=== PATIENT | male | born 1970 | race African-American/Black ===

== ENCOUNTER 2016-12-04 10:06 | Emergency (ER) | payer SELFPAY ==
[~2016-12-04] VITALS: Ht 175.3 cm; Wt 65.0 kg
[~2016-12-04 10:06] MED LIST: AMLO5 PO; BENT20TA PO; HYDR-3533 PO; OMEP40CA2 PO; SUCR1S PO; ZOFR4TAB PO
[2016-12-04 10:08] VITALS: BP 167/98; PULSE 74; RESP 12; TEMP 98.8; O2SAT 100
[2016-12-04 11:52] LABS: AUTOMATED NEUTROPHIL # 4.6 TH/MM3 (1.8-7.7); BASOPHIL % 0.2 % (0.0-2.0); EOSINOPHIL % 0.1 % (0.0-4.0); HEMO FLAGS DIFF FINAL; LYMPH % 10.6 % (9.0-44.0); LYMPHOCYTE # 0.6 TH/MM3 (1.0-4.8); MEAN CELL VOLUME 83.1 FL (80.0-100.0); MEAN CORPUSCULAR HEMOGLOBIN 28.3 PG (27.0-34.0); MEAN CORPUSCULAR HGB CONC 34.1 % (32.0-36.0); MONO % 4.3 % (0.0-8.0); NEUT % 84.8 % (16.0-70.0); PLATELET COUNT 293 TH/MM3 (150-450); RED BLOOD COUNT 4.82 MIL/MM3 (4.50-5.90); RED CELL DISTRIBUTION WIDTH 14.1 % (11.6-17.2); WHITE BLOOD COUNT 5.4 TH/MM3 (4.0-11.0)
[2016-12-04 11:55] LABS: BACTERIA, URINE RARE /hpf; BLOOD, URINE MOD (NEG); GLUCOSE,URINE NEG (NEG); HYALINE CAST, URINE 2 /lpf (RARE); KETONE, URINE NEG (NEG); MUCUS URINE FEW /lpf (OCC); NITRITE,URINE NEG (NEG); URINE COLOR YELLOW (YELLW/STRAW)
[2016-12-04 12:01] LABS: COMMENT (UR) CULT NOT INDICATED; CULTURE IF INDICATED CULT NOT INDICATED
[2016-12-04 12:07] LABS: ANION GAP 6 MEQ/L (5-15); AST (GOT) 22 U/L (15-37); BLOOD UREA NITROGEN 14 MG/DL (7-18); CHLORIDE 105 MEQ/L (98-107); GLOMERULAR FILTRATION RATE 98 ML/MIN (>89); POTASSIUM 4.4 MEQ/L (3.5-5.1); SODIUM (NA) 140 MEQ/L (136-145)
[2016-12-04 12:10] LABS: ALKALINE PHOSPHATASE 70 U/L (45-117); ALT (GPT) 41 U/L (12-78); TOTAL BILIRUBIN ADULT 0.4 MG/DL (0.2-1.0)
[2016-12-05] MEDS ORDERED: ZANTTAB9 PO (09:12)
[2016-12-05] MEDS ORDERED: REGL5TAB PO (10:16)
[2016-12-05] MEDS ORDERED: AMLO5 PO (10:16)
== END 2016-12-04 14:13 | disposition left against medical advice (07) ==
LOC: NETRI 10:06
DX: R11.10 Vomiting, unspecified (principal)
CPT/HCPCS: 80053; 81001; 83690; 85025; 99281

== ENCOUNTER 2016-12-05 08:30 | Emergency (ER) | payer SELFPAY ==
[~2016-12-05] VITALS: Ht 177.8 cm; Wt 65.0 kg
[2016-12-05 08:32] VITALS: BP 174/113; PULSE 92; RESP 16; TEMP 98.2; O2SAT 97
[2016-12-05] MEDS ORDERED: ZANTTAB9 PO (09:12)
--- NOTE | 2016-12-05 09:13 | PD ---
HPI Chief Complaint: GI Complaint Time Seen by Provider: 09:05 Travel History International Travel<30 days: No Contact w/Intl Traveler<30days: No Traveled to known affect area: No History of Present Illness HPI 46-year-old male came to the emergency room with history of intractable vomiting since past 2 days. He is also complaining of generalized abdominal pain. Patient has had these symptoms multiple times in the past. He says he had upper endoscopy but nothing showed up at that time. He had his gallbladder taken out many years ago but that has not helped the situation. He was in the emergency room yesterday for these symptoms but there was a long wait time. So he left without being seen. He says usually he gets some medications and IV fluid bolus after which he feels better. On looking at his past medical history in this institution it seems like he was here in the emergency room with the same symptoms 2 months ago when a CAT scan of the abdomen was done. It was within normal limits. Patient is hypertensive. He says his blood pressure goes up whenever he is in distress and pain like this. Patient is currently not on any medications. He does not have insurance and does not have a primary care doctor. [facility] Past Medical History Narrative Medical List of his past medical history as reviewed from the nursing note. Arthritis: No Autoimmune Disease: No Blood Disorders: No Cancer: No Cardiac Catheterization: No Cardiovascular Problems: Yes High Cholesterol: No Congestive Heart Failure: No Diabetes: No Diminished Hearing: No Endocrine: No Gastrointestinal Disorders: Yes (gastritis, GERD) GERD: Yes Genitourinary: No Headaches: No Hypertension: Yes Immune Disorder: No Implanted Vascular Access Dvce: No Musculoskeletal: No Neurologic: No Psychiatric: No Reproductive: No Respiratory: No Tetanus Vaccination: < 5 Years PNEUMOCCOCAL Vaccine (Year): 3 Past Surgical History Abdominal Surgery: Yes Cardiac Surgery: No Cholecystectomy: Yes Ear Surgery: No Endocrine Surgery: No Eye Surgery: No Genitourinary Surgery: Yes Gynecologic Surgery: No Neurologic Surgery: No Oral Surgery: No Thoracic Surgery: No Social History Alcohol Use: No Tobacco Use: Yes (<1/2 ppd) Substance Use: Yes (marijuana occ) Allergies-Medications (Allergen,Severity, Reaction): Coded Allergies: No Known Allergies (Verified , 12/06/16) Comments No known drug allergies. Reported Meds & Prescriptions Reported Meds & Active Scripts Active Bentyl (Dicyclomine HCl) 20 Mg Tab 20 Mg PO QID PRN Reglan (Metoclopramide HCl) 5 Mg Tab 5 Mg PO TIDAC Norvasc (Amlodipine Besylate) 5 Mg Tab 5 Mg PO DAILY Reported Zantac 75 (Ranitidine HCl) 75 Mg Tab 75 Mg PO DAILY Take 30 to 60 minutes before eating food or drinking beverages that cause heartburn. Narrative Medication List of his home medications reviewed from the nursing note. Review of Systems Except as stated in HPI: all other systems reviewed are Neg Physical Exam Narrative GENERAL: Awake, alert, moderate distress, anxious SKIN: Warm and dry. HEAD: Atraumatic. Normocephalic. EYES: Pupils equal and round. No scleral icterus. No injection or drainage. ENT: No nasal bleeding or discharge. Dry mucous membrane with coated tongue NECK: Trachea midline. No JVD. CARDIOVASCULAR: Regular rate and rhythm. No murmur appreciated. RESPIRATORY: No accessory muscle use. Clear to auscultation. Breath sounds equal bilaterally. GASTROINTESTINAL: Abdomen soft, non-tender, nondistended. Hepatic and splenic margins not palpable. MUSCULOSKELETAL: No obvious deformities. No clubbing. No cyanosis. No edema. NEUROLOGICAL: Awake and alert. No obvious cranial nerve deficits. Motor grossly within normal limits. Normal speech. PSYCHIATRIC: Appropriate mood and affect; insight and judgment normal. Data Data Last Documented VS Vital Signs Date Time Temp Pulse Resp B/P Pulse Ox O2 Delivery O2 Flow Rate FiO2 12/05/16 09:39 99 12/05/16 08:32 98.2 92 16 174/113 Room Air Orders Complete Blood Count With Diff (12/05/16 09:21) Comprehensive Metabolic Panel (12/05/16 09:21) Lipase (12/05/16 09:21) Iv Access Insert/Monitor (12/05/16 09:21) Ecg Monitoring (12/05/16 09:21) Oximetry (12/05/16 09:21) Pantoprazole Inj (Protonix Inj) (12/05/16 09:30) Sodium Chlor 0.9% 1000 Ml Inj (Ns 1000 M (12/05/16 09:21) Sodium Chlor 0.9% 1000 Ml Inj (Ns 1000 M (12/05/16 09:21) Sodium Chloride 0.9% Flush (Ns Flush) (12/05/16 09:30) Metoclopramide Inj (Reglan Inj) (12/05/16 09:30) Morphine Inj (Morphine Inj) (12/05/16 09:30) Metoclopramide Inj (Reglan Inj) (12/05/16 10:15) Sodium Chlor 0.9% 1000 Ml Inj (Ns 1000 M (12/05/16 10:30) Labs Laboratory Tests Test 12/05/16 09:30 White Blood Count 5.9 TH/MM3 Red Blood Count 5.19 MIL/MM3 Hemoglobin 14.8 GM/DL Hematocrit 43.0 % Mean Corpuscular Volume 82.7 FL Mean Corpuscular Hemoglobin 28.4 PG Mean Corpuscular Hemoglobin 34.4 % Concent Red Cell Distribution Width 13.7 % Platelet Count 282 TH/MM3 Mean Platelet Volume 7.8 FL Neutrophils (%) (Auto) 68.8 % Lymphocytes (%) (Auto) 16.1 % Monocytes (%) (Auto) 14.7 % Eosinophils (%) (Auto) 0.0 % Basophils (%) (Auto) 0.4 % Neutrophils # (Auto) 4.1 TH/MM3 Lymphocytes # (Auto) 0.9 TH/MM3 Monocytes # (Auto) 0.9 TH/MM3 Eosinophils # (Auto) 0.0 TH/MM3 Basophils # (Auto) 0.0 TH/MM3 CBC Comment DIFF FINAL Differential Comment Sodium Level 140 MEQ/L Potassium Level 4.1 MEQ/L Chloride Level 102 MEQ/L Carbon Dioxide Level 27.6 MEQ/L Anion Gap 10 MEQ/L Blood Urea Nitrogen 19 MG/DL Creatinine 1.06 MG/DL Estimat Glomerular Filtration 92 ML/MIN Rate Random Glucose 99 MG/DL Calcium Level 9.3 MG/DL Total Bilirubin 0.5 MG/DL Aspartate Amino Transf 22 U/L (AST/SGOT) Alanine Aminotransferase 38 U/L (ALT/SGPT) Alkaline Phosphatase 73 U/L Total Protein 8.6 GM/DL Albumin 4.4 GM/DL Lipase 139 U/L MDM Medical Decision Making Medical Screen Exam Complete: Yes Emergency Medical Condition: Yes Medical Record Reviewed: Yes Differential Diagnosis Acute pancreatitis, small bowel obstruction, cyclic vomiting syndrome, acute on chronic abdominal pain Narrative Course 10:11 AM CBC and CMP are back and within normal limit. I've ordered 2 L of IV fluid bolus, medicated him for pain and vomiting. In my opinion patient may have cyclic vomiting syndrome given the way he presents on an ongoing basis. At the least it's acute on chronic abdominal pain. I will discharge him home once the fluid is done. Procedures EKG Prior to Arrival: No Diagnosis Primary Impression: Abdominal pain Qualified Code: R10.9 - Abdominal pain, unspecified location Additional Impressions: acute on chronic abdominal pain Intractable vomiting with nausea Qualified Code: G43.A1 - Intractable cyclical vomiting with nausea Dehydration Essential hypertension Non-compliant patient Referrals: Primary Care Physician 2 days Additional Instructions: Please follow-up with your primary care in couple days. Return to the ER if the condition worsens or any other new concerns. Med/Other Pt SpecificInfo: Prescription(s) given Scripts Metoclopramide (Reglan)5 Mg Tab5 Mg PO TIDAC #15 TAB Ref 0 Prov:Ajith Jones MD 12/05/16 Amlodipine (Norvasc)5 Mg Tab5 Mg PO DAILY #30 TAB Ref 0 Prov:Ajith Jones MD 12/05/16 Disposition: 01 DISCHARGE HOME Condition: Stable Ajith Jones MD Dec 05, 2016 09:12
[2016-12-05] MEDS ORDERED: SODIUM CHLOR 0.9% 1000 ML INJ 1,000 ML IV SCH ×2 (09:21)
[2016-12-05] MEDS ORDERED: MORPHINE SULFATE 4 MG/ML INJ IV PUSH ONE (09:30)
[2016-12-05] MEDS ORDERED: PANTOPRAZOLE SODIUM 40 MG VIAL IVP ONE (09:30)
[2016-12-05] MEDS ORDERED: METOCLOPRAMIDE HCL 10 MG/2 ML VIAL IV PUSH ONE ×2 (09:30→10:15)
[2016-12-05] MEDS ORDERED: SODIUM CHLORIDE 0.9% FLUSH 5 ML FLUSH IVF PRN (09:30)
[2016-12-05 09:39] VITALS: O2SAT 99
[2016-12-05 09:40] LABS: AUTOMATED NEUTROPHIL # 4.1 TH/MM3 (1.8-7.7); BASOPHIL % 0.4 % (0.0-2.0); HEMO FLAGS DIFF FINAL; LYMPH % 16.1 % (9.0-44.0); LYMPHOCYTE # 0.9 TH/MM3 (1.0-4.8); MEAN CELL VOLUME 82.7 FL (80.0-100.0); MEAN CORPUSCULAR HEMOGLOBIN 28.4 PG (27.0-34.0); MEAN CORPUSCULAR HGB CONC 34.4 % (32.0-36.0); MONO % 14.7 % (0.0-8.0); NEUT % 68.8 % (16.0-70.0); PLATELET COUNT 282 TH/MM3 (150-450); RED BLOOD COUNT 5.19 MIL/MM3 (4.50-5.90); RED CELL DISTRIBUTION WIDTH 13.7 % (11.6-17.2); WHITE BLOOD COUNT 5.9 TH/MM3 (4.0-11.0)
[2016-12-05 09:59] LABS: ANION GAP 10 MEQ/L (5-15); AST (GOT) 22 U/L (15-37); BICARBONATE 27.6 MEQ/L (21.0-32.0); BLOOD UREA NITROGEN 19 MG/DL (7-18); CHLORIDE 102 MEQ/L (98-107); GLOMERULAR FILTRATION RATE 92 ML/MIN (>89); POTASSIUM 4.1 MEQ/L (3.5-5.1); SODIUM (NA) 140 MEQ/L (136-145)
[2016-12-05 10:03] LABS: ALKALINE PHOSPHATASE 73 U/L (45-117); ALT (GPT) 38 U/L (12-78); TOTAL BILIRUBIN ADULT 0.5 MG/DL (0.2-1.0)
[2016-12-05] MEDS ORDERED: REGL5TAB PO (10:16)
[2016-12-05] MEDS ORDERED: AMLO5 PO (10:16)
[2016-12-05] MEDS ORDERED: SODIUM CHLOR 0.9% 1000 ML INJ 1,000 ML IV ONE (10:30)
[2016-12-06] MEDS ORDERED: BENT20TA PO (10:21)
== END 2016-12-05 11:44 | disposition home or self-care (01) ==
LOC: NEPC 08:30
DX: R10.84 Generalized abdominal pain (principal); G89.29 Other chronic pain; G43.A1 Cyclical vomiting, in migraine, intractable; I10 Essential (primary) hypertension; E86.0 Dehydration; F17.200 Nicotine dependence, unspecified, uncomplicated; Z91.14 Patient's other noncompliance with medication regimen
CPT/HCPCS: 80053; 83690; 85025; 96361; 96374; 96375; 96376; 99284; C9113; J2270; J2765; J7030

== ENCOUNTER 2016-12-06 07:43 | Emergency (ER) | payer SELFPAY ==
[~2016-12-06] VITALS: Ht 177.8 cm; Wt 60.0 kg
[~2016-12-06 07:43] MED LIST changes: +REGL5TAB PO; +ZANTTAB9 PO
[2016-12-06 07:45] VITALS: BP 141/81; PULSE 88; RESP 15; TEMP 98.1; O2SAT 97
[2016-12-06] MEDS ORDERED: SODIUM CHLOR 0.9% 1000 ML INJ 1,000 ML IV SCH (08:15)
[2016-12-06] MEDS ORDERED: SODIUM CHLORIDE 0.9% FLUSH 5 ML FLUSH IVF PRN (08:15)
[2016-12-06] MEDS ORDERED: METOCLOPRAMIDE HCL 10 MG/2 ML VIAL IV PUSH ONE (08:15)
[2016-12-06 09:26] VITALS: RESP 18; O2SAT 99
[2016-12-06] MEDS ORDERED: KETOROLAC TROMETHAMINE 30 MG/ML (IVP) VIAL IV PUSH ONE (09:30)
[2016-12-06] MEDS ORDERED: IOHEXOL 350 MG/ML 10 ML VIAL (for RAD DIAG) IV ONE (09:46)
--- NOTE | 2016-12-06 10:04 | RADRPT ---
EXAM DATE/TIME: 12/06/2016 09:38 [facility] COMPARISON: CT ABDOMEN & PELVIS W CONTRAST, September 29, 2016, 14:47. INDICATIONS : Abdominal pain with nausea and vomiting. IV CONTRAST: 97 cc Omnipaque 350 (iohexol) IV ORAL CONTRAST: No oral contrast ingested. RADIATION DOSE: 9.96 CTDIvol (mGy) MEDICAL HISTORY : Gastroesophageal reflux disease. Cardiovascular disease Hypertension.Gastritis. SURGICAL HISTORY : Cholecystectomy. ENCOUNTER: Initial ACUITY: 2 days PAIN SCALE: 3/10 LOCATION: Bilateral upper quadrant TECHNIQUE: Volumetric scanning of the abdomen and pelvis was performed. Using automated exposure control and ad justment of the mA and/or kV according to patient size, radiation dose was kept as low as reasonably achievable to obtain optimal diagnostic quality images. FINDINGS: LOWER LUNGS: The visualized lower lungs are clear. LIVER: Homogeneous density without lesion. There is no dilation of the biliary tree. Status post cholecyste ctomy. SPLEEN: Normal size without lesion. PANCREAS: Within normal limits. KIDNEYS: Normal in size and shape. There is no solid mass, stone or hydronephrosis. A simple left renal cyst is again noted. ADRENAL GLANDS: Within normal limits. VASCULAR: There is no aortic aneurysm. BOWEL/MESENTERY: No oral contrast was given. There are multiple loops of nondilated air-containing small bowel in the abdomen and pelvis. The lack of oral contrast limits the sensitivity. The patient has little mesenter ic fat to separate the bowel loops. The stomach, small bowel, and colon demonstrate no acute abnormal ity. There is no free intraperitoneal air or fluid. ABDOMINAL WALL: Within normal limits. RETROPERITONEUM: There is no lymphadenopathy. BLADDER: No wall thickening or mass. REPRODUCTIVE: Within normal limits. INGUINAL: There is no lymphadenopathy or hernia. MUSCULOSKELETAL: Within normal limits for patient age. CONCLUSION: 1. Nonspecific, nonobstructive bowel gas pattern which may represent ileus or gastroenteritis. Study was performed without oral contrast limiting the sensitivity. 2. Status post cholecystectomy. James Sotelo MD on December 06, 2016 at 10:00 Board Certified Radiologist. This report was verified electronically.
--- NOTE | 2016-12-06 10:17 | PD ---
HPI Chief Complaint: GI Complaint Time Seen by Provider: 08:15 Travel History International Travel<30 days: No Contact w/Intl Traveler<30days: No Traveled to known affect area: No History of Present Illness HPI Patient's 46-year-old male presents emergency department for second evaluation of abdominal pain nausea vomiting and diarrhea. Patient was evaluated in this emergency department last night and per Dr. Lin's notes strong consideration for cyclic vomiting syndrome. Patient states he was not able to fill his prescriptions yet. He was discharged with Reglan. Patient states his abdominal pain is persisted as well as mild nausea and vomiting. Denies any fever denies any blood in the emesis blood in the stool. PFSH Past Medical History Arthritis: No Autoimmune Disease: No Blood Disorders: No Cancer: No Cardiac Catheterization: No Cardiovascular Problems: Yes High Cholesterol: No Congestive Heart Failure: No Diabetes: No Diminished Hearing: No Endocrine: No Gastrointestinal Disorders: Yes (gastritis, GERD) GERD: Yes Genitourinary: No Headaches: No Hypertension: Yes Immune Disorder: No Implanted Vascular Access Dvce: No Musculoskeletal: No Neurologic: No Psychiatric: No Reproductive: No Respiratory: No PNEUMOCCOCAL Vaccine (Year): 3 Past Surgical History Abdominal Surgery: Yes Cardiac Surgery: No Cholecystectomy: Yes Ear Surgery: No Endocrine Surgery: No Eye Surgery: No Genitourinary Surgery: Yes Gynecologic Surgery: No Neurologic Surgery: No Oral Surgery: No Thoracic Surgery: No Social History Alcohol Use: No Tobacco Use: Yes (<1/2 ppd) Substance Use: Yes (marijuana occ) Allergies-Medications (Allergen,Severity, Reaction): Coded Allergies: No Known Allergies (Verified , 12/06/16) Reported Meds & Prescriptions Reported Meds & Active Scripts Active Bentyl (Dicyclomine HCl) 20 Mg Tab 20 Mg PO QID PRN Reglan (Metoclopramide HCl) 5 Mg Tab 5 Mg PO TIDAC Norvasc (Amlodipine Besylate) 5 Mg Tab 5 Mg PO DAILY Reported Zantac 75 (Ranitidine HCl) 75 Mg Tab 75 Mg PO DAILY Take 30 to 60 minutes before eating food or drinking beverages that cause heartburn. Review of Systems Except as stated in HPI: all other systems reviewed are Neg Physical Exam Narrative GENERAL: Well-developed well-nourished no apparent distress SKIN: Warm and dry. HEAD: Atraumatic. Normocephalic. EYES: Pupils equal and round. No scleral icterus. No injection or drainage. ENT: No nasal bleeding or discharge. Mucous membranes pink and moist. NECK: Trachea midline. No JVD. CARDIOVASCULAR: Regular rate and rhythm. No murmur appreciated. RESPIRATORY: No accessory muscle use. Clear to auscultation. Breath sounds equal bilaterally. GASTROINTESTINAL: Abdomen soft, non-tender, nondistended. Hepatic and splenic margins not palpable. Normal active bowel sounds. MUSCULOSKELETAL: No obvious deformities. No clubbing. No cyanosis. No edema. NEUROLOGICAL: Awake and alert. No obvious cranial nerve deficits. Motor grossly within normal limits. Normal speech. PSYCHIATRIC: Appropriate mood and affect; insight and judgment normal. Data Data Last Documented VS Vital Signs Date Time Temp Pulse Resp B/P Pulse Ox O2 Delivery O2 Flow Rate FiO2 12/06/16 09:26 18 99 12/06/16 07:45 98.1 88 141/[address] Abd/Pel W Iv Contrast(Rout) (12/06/16 08:15) Iv Access Insert/Monitor (12/06/16 08:15) Ecg Monitoring (12/06/16 08:15) Oximetry (12/06/16 08:15) Sodium Chlor 0.9% 1000 Ml Inj (Ns 1000 M (12/06/16 08:15) Sodium Chloride 0.9% Flush (Ns Flush) (12/06/16 08:15) Metoclopramide Inj (Reglan Inj) (12/06/16 08:15) Ketorolac Inj (Toradol Inj) (12/06/16 09:30) Iohexol 350 Inj (Omnipaque 350 Inj) (12/06/16 09:46) Dicyclomine (Bentyl) (12/06/16 10:30) MDM Medical Decision Making Medical Screen Exam Complete: Yes Emergency Medical Condition: Yes Differential Diagnosis Gastritis, gastric enteritis, pancreatitis, cyclic vomiting syndrome, obstipation highly unlikely, infectious diarrhea. Narrative Course Patient was roomed emerged permit, appears quite well and in no apparent distress. He was given pain medicine and started feeling better. A CT exam was performed which showed evidence of enteritis. There was comment that possibly patient did have ileus however I reviewed the CAT scan I do not see any air-fluid levels and this is highly consistent with his presentation. Patient's labs reviewed from yesterday and showed normal CBC and a normal CMP. Lipase was negative. Patient is not obstipated in the emergency department has not had any nausea vomiting while here. He is able tolerate by mouth in the emergency department. Discussed with the patient need to fill his prescriptions and discussed need follow-up with a primary care physician. Discussed return to ED criteria. For discharge at this time. Diagnosis Primary Impression: NAUSEA WITH VOMITING, UNSPECIFIED Scripts Dicyclomine (Bentyl)20 Mg Tab20 Mg PO QID PRN (ABDOMINAL CRAMPING) #20 TAB Ref 0 Prov:Tam Lala MD 12/06/16 Disposition: 01 DISCHARGE HOME Condition: Stable Tam Lala MD Dec 06, 2016 10:17
[2016-12-06] MEDS ORDERED: BENT20TA PO (10:21)
[2016-12-06] MEDS ORDERED: DICYCLOMINE HCL 10 MG CAP PO ONE (10:30)
== END 2016-12-06 11:11 | disposition home or self-care (01) ==
LOC: NEPE 07:43
DX: R11.2 Nausea with vomiting, unspecified (principal); I10 Essential (primary) hypertension; F17.210 Nicotine dependence, cigarettes, uncomplicated; F12.90 Cannabis use, unspecified, uncomplicated; Z79.899 Other long term (current) drug therapy
CPT/HCPCS: 74177; 96361; 96374; 96375; 99283; J1885; J2765; J7030; Q9967

== ENCOUNTER 2017-09-13 07:10 | Emergency (ER) | payer SELFPAY ==
[~2017-09-13] VITALS: Ht 177.8 cm; Wt 68.0 kg
[~2017-09-13 07:10] MED LIST changes: -HYDR-3533 PO; -OMEP40CA2 PO; -SUCR1S PO; -ZOFR4TAB PO
[2017-09-13 07:14] VITALS: BP 164/107; PULSE 78; RESP 14; TEMP 98.8; O2SAT 100
[2017-09-13 07:32] VITALS: BP 164/107; PULSE 61; RESP 16; O2SAT 98
[2017-09-13] MEDS ORDERED: SODIUM CHLOR 0.9% 1000 ML INJ 1,000 ML IV SCH (07:39)
[2017-09-13 07:45] VITALS: RESP 16; O2SAT 98
[2017-09-13] MEDS ORDERED: PANTOPRAZOLE SODIUM 40 MG VIAL IVP ONE (07:45)
[2017-09-13] MEDS ORDERED: SODIUM CHLORIDE 0.9% FLUSH 10 ML FLUSH IV FLUSH PRN (07:45)
--- NOTE | 2017-09-13 07:47 | PD ---
HPI Chief Complaint: Abdominal Pain Time Seen by Provider: 07:36 Travel History International Travel<30 days: No Contact w/Intl Traveler<30days: No Traveled to known affect area: No History of Present Illness HPI 47 years old male complaining of abdominal pain with nausea vomiting. Patient states that the symptoms started several days ago. Patient has history of recurrent abdominal pain with nausea vomiting. Patient has been seen in emergency room multiple times in the past with a workup. Patient was diagnosis with cyclical vomiting syndrome. Patient states that the abdominal pain is burning pain sharp pain diffuse over the abdomen however worse around epigastric area. Patient denies any pain radiation. Patient denies any blood or mucus in the stool. Patient states the pain is worse with eating. On a scale of 1-10 the pain is a 10. Patient states that he has not follow-up with any lead generation marketing manager for his condition. PFSH Past Medical History Arthritis: No Autoimmune Disease: No Blood Disorders: No Cancer: No Cardiac Catheterization: No Cardiovascular Problems: Yes High Cholesterol: No Congestive Heart Failure: No Diabetes: No Diminished Hearing: No Endocrine: No Gastrointestinal Disorders: Yes GERD: Yes Genitourinary: No Headaches: No Hypertension: Yes Immune Disorder: No Implanted Vascular Access Dvce: No Musculoskeletal: No Neurologic: No Psychiatric: No Reproductive: No Respiratory: No Tetanus Vaccination: Unknown Influenza Vaccination: Yes PNEUMOCCOCAL Vaccine (Year): 3 Past Surgical History Abdominal Surgery: Yes Cardiac Surgery: No Cholecystectomy: Yes Ear Surgery: No Endocrine Surgery: No Eye Surgery: No Genitourinary Surgery: Yes Gynecologic Surgery: No Neurologic Surgery: No Oral Surgery: No Thoracic Surgery: No Social History Alcohol Use: No Tobacco Use: Yes (<1/2 ppd) Substance Use: Yes (marijuana occ) Allergies-Medications (Allergen,Severity, Reaction): Coded Allergies: No Known Allergies (Verified Adverse Reaction, Unknown, 09/13/17) Reported Meds & Prescriptions Reported Meds & Active Scripts Active No Active Prescriptions or Reported Medications Review of Systems General / Constitutional: No: Fever Eyes: No: Visual changes HENT: No: Headaches Cardiovascular: No: Chest Pain or Discomfort Respiratory: No: Shortness of Breath Gastrointestinal: Positive: Nausea, Vomiting, Abdominal Pain Genitourinary: No: Dysuria Musculoskeletal: No: Pain Skin: No Rash Neurologic: No: Weakness Psychiatric: No: Depression Endocrine: No: Polydipsia Hematologic/Lymphatic: No: Easy Bruising Physical Exam Narrative GENERAL: Well-nourished, well-developed patient. SKIN: Focused skin assessment warm/dry. HEAD: Normocephalic. EYES: No scleral icterus. No injection or drainage. NECK: Supple, trachea midline. No JVD or lymphadenopathy. CARDIOVASCULAR: Regular rate and rhythm without murmurs, gallops, or rubs. RESPIRATORY: Breath sounds equal bilaterally. No accessory muscle use. GASTROINTESTINAL: Abdomen soft, nondistended. Patient has moderate tenderness on palpation epigastric area. No rebound tenderness. No mass. MUSCULOSKELETAL: No cyanosis, or edema. BACK: Nontender without obvious deformity. No CVA tenderness. Neurologic exam normal. Data Data Last Documented VS Vital Signs Date Time Temp Pulse Resp B/P (MAP) Pulse Ox O2 Delivery O2 Flow Rate FiO2 09/13/17 07:45 16 98 Room Air 09/13/17 07:32 61 09/13/17 07:14 98.8 Orders Orders Complete Blood Count With Diff (09/13/17 07:39) Comprehensive Metabolic Panel (09/13/17 07:39) Lipase (09/13/17 07:39) Urinalysis - C+S If Indicated (09/13/17 07:39) Iv Access Insert/Monitor (09/13/17 07:39) Ecg Monitoring (09/13/17 07:39) Oximetry (09/13/17 07:39) Pantoprazole Inj (Protonix Inj) (09/13/17 07:45) Sodium Chlor 0.9% 1000 Ml Inj (Ns 1000 M (09/13/17 07:39) Sodium Chloride 0.9% Flush (Ns Flush) (09/13/17 07:45) Metoclopramide Inj (Reglan Inj) (09/13/17 08:00) Diphenhydramine Inj (Benadryl Inj) (09/13/17 08:00) Labs Laboratory Tests Test 09/13/17 07:15 09/13/17 10:00 White Blood Count 9.2 TH/MM3 Red Blood Count 4.96 MIL/MM3 Hemoglobin 14.1 GM/DL Hematocrit 42.1 % Mean Corpuscular Volume 84.8 FL Mean Corpuscular Hemoglobin 28.4 PG Mean Corpuscular Hemoglobin Concent 33.5 % Red Cell Distribution Width 14.8 % Platelet Count 327 TH/MM3 Mean Platelet Volume 7.6 FL Neutrophils (%) (Auto) 79.3 % Lymphocytes (%) (Auto) 13.9 % Monocytes (%) (Auto) 6.5 % Eosinophils (%) (Auto) 0.0 % Basophils (%) (Auto) 0.3 % Neutrophils # (Auto) 7.3 TH/MM3 Lymphocytes # (Auto) 1.3 TH/MM3 Monocytes # (Auto) 0.6 TH/MM3 Eosinophils # (Auto) 0.0 TH/MM3 Basophils # (Auto) 0.0 TH/MM3 CBC Comment DIFF FINAL Differential Comment Blood Urea Nitrogen 12 MG/DL Creatinine 1.02 MG/DL Random Glucose 114 MG/DL Total Protein 8.1 GM/DL Albumin 4.3 GM/DL Calcium Level 9.1 MG/DL Alkaline Phosphatase 74 U/L Aspartate Amino Transf (AST/SGOT) 14 U/L Alanine Aminotransferase (ALT/SGPT) 23 U/L Total Bilirubin 0.6 MG/DL Sodium Level 144 MEQ/L Potassium Level 3.7 MEQ/L Chloride Level 110 MEQ/L Carbon Dioxide Level 27.1 MEQ/L Anion Gap 7 MEQ/L Estimat Glomerular Filtration Rate 95 ML/MIN Lipase 106 U/L Urine Color YELLOW Urine Turbidity CLEAR Urine pH 6.0 Urine Specific [place] 1.012 Urine Protein 300 mg/dL Urine Glucose (UA) NEG mg/dL Urine Ketones NEG mg/dL Urine Occult Blood SMALL Urine Nitrite NEG Urine Bilirubin NEG Urine Urobilinogen LESS THAN 2.0 MG/DL Urine Leukocyte Esterase NEG Urine RBC 1 /hpf Urine WBC 2 /hpf Urine Mucus FEW /lpf Microscopic Urinalysis Comment CULT NOT INDICATED MDM Medical Decision Making Medical Screen Exam Complete: Yes Emergency Medical Condition: Yes Interpretation(s) 10:30 AM. CBC within normal limit. CMP within normal limit. UA is negative. Differential Diagnosis Differential diagnosis including recurrent abdominal pain with nausea vomiting, gastroparesis, electrolyte imbalance, dehydration. Narrative Course 47 years old male with recurrent abdominal pain nausea vomiting. Normal saline solution 1 25 cc an hour. Zofran 4 mg IV. Reglan 10 mg IV. Benadryl 25 mg IV. Diagnosis Primary Impression: Abdominal pain Qualified Codes: R10.9 - Unspecified abdominal pain Additional Impression: Cyclical vomiting Qualified Codes: G43.A0 - Cyclical vomiting, not intractable Patient Instructions: General Instructions Additional Instructions: Take medications as directed. Follow-up with personal physician. Return if worse. Med/Other Pt SpecificInfo: Prescription(s) given Scripts Pantoprazole (Protonix) 40 Mg Tab 40 MG PO DAILY for Reflux, #30 TAB 0 Refills Prov: Leo Bañuelos MD 09/13/17 Metoclopramide (Reglan) 10 Mg Tab 10 MG PO TIDAC for Nausea/Vomiting, #30 TAB 0 Refills Prov: Leo Bañuelos MD 09/13/17 Disposition: 01 DISCHARGE HOME Condition: Stable Leo Bañuelos MD Sep 13, 2017 07:47
[2017-09-13] MEDS ORDERED: diphenhydrAMINE HCL 50 MG/ML VIAL IV PUSH ONE (08:00)
[2017-09-13] MEDS ORDERED: METOCLOPRAMIDE HCL 10 MG/2 ML VIAL IV PUSH ONE (08:00)
[2017-09-13 08:14] LABS: AUTOMATED NEUTROPHIL # 7.3 TH/MM3 (1.8-7.7); BASOPHIL % 0.3 % (0.0-2.0); HEMATOCRIT 42.1 % (39.0-51.0); HEMO FLAGS DIFF FINAL; LYMPH % 13.9 % (9.0-44.0); LYMPHOCYTE # 1.3 TH/MM3 (1.0-4.8); MEAN CELL VOLUME 84.8 FL (80.0-100.0); MEAN CORPUSCULAR HEMOGLOBIN 28.4 PG (27.0-34.0); MEAN CORPUSCULAR HGB CONC 33.5 % (32.0-36.0); MONO % 6.5 % (0.0-8.0); NEUT % 79.3 % (16.0-70.0); PLATELET COUNT 327 TH/MM3 (150-450); RED BLOOD COUNT 4.96 MIL/MM3 (4.50-5.90); RED CELL DISTRIBUTION WIDTH 14.8 % (11.6-17.2); WHITE BLOOD COUNT 9.2 TH/MM3 (4.0-11.0)
[2017-09-13 08:28] LABS: ALT (GPT) 23 U/L (12-78); ANION GAP 7 MEQ/L (5-15); AST (GOT) 14 U/L (15-37); BICARBONATE 27.1 MEQ/L (21.0-32.0); BLOOD UREA NITROGEN 12 MG/DL (7-18); CHLORIDE 110 MEQ/L (98-107); GLOMERULAR FILTRATION RATE 95 ML/MIN (>89); POTASSIUM 3.7 MEQ/L (3.5-5.1); SODIUM (NA) 144 MEQ/L (136-145)
[2017-09-13 08:30] LABS: ALKALINE PHOSPHATASE 74 U/L (45-117); TOTAL BILIRUBIN ADULT 0.6 MG/DL (0.2-1.0)
[2017-09-13 10:20] LABS: BLOOD, URINE SMALL (NEG); GLUCOSE,URINE NEG (NEG); KETONE, URINE NEG (NEG); MUCUS URINE FEW /lpf (OCC); NITRITE,URINE NEG (NEG); URINE COLOR YELLOW (YELLW/STRAW)
[2017-09-13 10:21] LABS: COMMENT (UR) CULT NOT INDICATED; CULTURE IF INDICATED CULT NOT INDICATED
[2017-09-13] MEDS ORDERED: PROT40TA PO (10:50)
[2017-09-13] MEDS ORDERED: REGL10TA5 PO (10:50)
== END 2017-09-13 10:53 | disposition home or self-care (01) ==
LOC: NEPE 07:10
DX: R10.9 Unspecified abdominal pain (principal); G43.A0 Cyclical vomiting, in migraine, not intractable; K21.9 Gastro-esophageal reflux disease without esophagitis; I10 Essential (primary) hypertension; F17.200 Nicotine dependence, unspecified, uncomplicated
CPT/HCPCS: 80053; 81001; 83690; 85025; 96374; 96375; 99285; C9113; J1200; J2765; J7030

== ENCOUNTER 2017-09-14 07:56 | Emergency (ER) | payer SELFPAY ==
[~2017-09-14] VITALS: Ht 180.3 cm; Wt 68.0 kg
[~2017-09-14 07:56] MED LIST changes: -AMLO5 PO; -BENT20TA PO; +PROT40TA PO; +REGL10TA5 PO; -REGL5TAB PO; -ZANTTAB9 PO
[2017-09-14 07:59] VITALS: BP 169/94; PULSE 86; RESP 14; TEMP 99; O2SAT 97
--- NOTE | 2017-09-14 08:44 | PD ---
HPI Chief Complaint: GI Complaint Time Seen by Provider: 08:31 Travel History International Travel<30 days: No Contact w/Intl Traveler<30days: No Traveled to known affect area: No History of Present Illness HPI 47-year-old male presents with worsening abdominal pain and nonbloody emesis. He states that he was unable to get his prescription filled. He states that the pain is sharp. Severity is severe. Quality is nonbloody. Severity is multiple episodes. Location is center of his abdomen. He denies any specific modifying factors or migration of the pain. Duration is persistent since recent ER visit [facility] Past Medical History Arthritis: No Autoimmune Disease: No Blood Disorders: No Cancer: No Cardiac Catheterization: No Cardiovascular Problems: Yes High Cholesterol: No Congestive Heart Failure: No Diabetes: No Diminished Hearing: No Endocrine: No Gastrointestinal Disorders: Yes GERD: Yes Genitourinary: No Headaches: No Hypertension: Yes Immune Disorder: No Implanted Vascular Access Dvce: No Musculoskeletal: No Neurologic: No Psychiatric: No Reproductive: No Respiratory: No Tetanus Vaccination: > 5 Years Influenza Vaccination: No PNEUMOCCOCAL Vaccine (Year): 3 Past Surgical History Abdominal Surgery: Yes Cardiac Surgery: No Cholecystectomy: Yes Ear Surgery: No Endocrine Surgery: No Eye Surgery: No Genitourinary Surgery: Yes Gynecologic Surgery: No Neurologic Surgery: No Oral Surgery: No Thoracic Surgery: No Social History Alcohol Use: No Tobacco Use: Yes (<1/2 ppd) Substance Use: Yes (marijuana occ) Allergies-Medications (Allergen,Severity, Reaction): Coded Allergies: No Known Allergies (Verified Adverse Reaction, Unknown, 09/14/17) Reported Meds & Prescriptions Reported Meds & Active Scripts Active Protonix (Pantoprazole Sodium) 40 Mg Tab 40 Mg PO DAILY Reglan (Metoclopramide HCl) 10 Mg Tab 10 Mg PO TIDAC Review of Systems Except as stated in HPI: all other systems reviewed are Neg Physical Exam Narrative GENERAL: Well-nourished, well-developed patient. SKIN: Warm and dry. HEAD: Normocephalic and atraumatic. EYES: No injection or drainage. ENT: No nasal drainage noted. NECK: Supple, trachea midline. CARDIOVASCULAR: Regular rate and rhythm RESPIRATORY: Breath sounds equal bilaterally. No accessory muscle use. GASTROINTESTINAL: Abdomen soft, diffusely tender no rebound or guarding, nondistended. EXTREMITIES: No edema. NEUROLOGICAL: Awake and alert. Moves all extremities and sensory grossly within normal limits. Normal speech. Data Data Last Documented VS Vital Signs Date Time Temp Pulse Resp B/P (MAP) Pulse Ox O2 Delivery O2 Flow Rate FiO2 09/14/17 07:59 99.0 86 14 169/94 (119) 97 Orders Orders Complete Blood Count With Diff (09/14/17 08:34) Comprehensive Metabolic Panel (09/14/17 08:34) Urinalysis - C+S If Indicated (09/14/17 08:34) Lipase (09/14/17 08:34) Ct Abd/Pel W Iv Contrast(Rout) (09/14/17 ) Iv Access Insert/Monitor (09/14/17 08:34) Ondansetron Inj (Zofran Inj) (09/14/17 08:45) Sodium Chlor 0.9% 1000 Ml Inj (Ns 1000 M (09/14/17 08:45) Ketorolac Inj (Toradol Inj) (09/14/17 08:45) Iohexol 350 Inj (Omnipaque 350 Inj) (09/14/17 09:25) Oral Rehydration (09/14/17 10:14) Ed Discharge Order (09/14/17 10:42) Labs Laboratory Tests Test 09/14/17 08:45 09/14/17 09:40 White Blood Count 7.5 TH/MM3 Red Blood Count 4.92 MIL/MM3 Hemoglobin 14.1 GM/DL Hematocrit 41.4 % Mean Corpuscular Volume 84.1 FL Mean Corpuscular Hemoglobin 28.7 PG Mean Corpuscular Hemoglobin Concent 34.2 % Red Cell Distribution Width 14.6 % Platelet Count 289 TH/MM3 Mean Platelet Volume 7.7 FL Neutrophils (%) (Auto) 70.0 % Lymphocytes (%) (Auto) 23.0 % Monocytes (%) (Auto) 6.7 % Eosinophils (%) (Auto) 0.0 % Basophils (%) (Auto) 0.3 % Neutrophils # (Auto) 5.2 TH/MM3 Lymphocytes # (Auto) 1.7 TH/MM3 Monocytes # (Auto) 0.5 TH/MM3 Eosinophils # (Auto) 0.0 TH/MM3 Basophils # (Auto) 0.0 TH/MM3 CBC Comment DIFF FINAL Differential Comment Blood Urea Nitrogen 14 MG/DL Creatinine 1.14 MG/DL Random Glucose 101 MG/DL Total Protein 8.1 GM/DL Albumin 4.3 GM/DL Calcium Level 9.1 MG/DL Alkaline Phosphatase 72 U/L Aspartate Amino Transf (AST/SGOT) 17 U/L Alanine Aminotransferase (ALT/SGPT) 27 U/L Total Bilirubin 0.8 MG/DL Sodium Level 143 MEQ/L Potassium Level 3.8 MEQ/L Chloride Level 107 MEQ/L Carbon Dioxide Level 30.9 MEQ/L Anion Gap 5 MEQ/L Estimat Glomerular Filtration Rate 84 ML/MIN Lipase 105 U/L Urine Color YELLOW Urine Turbidity CLEAR Urine pH 6.5 Urine Specific [place] 1.016 Urine Protein 100 mg/dL Urine Glucose (UA) NEG mg/dL Urine Ketones 10 mg/dL Urine Occult Blood TRACE Urine Nitrite NEG Urine Bilirubin NEG Urine Urobilinogen 2.0 MG/DL Urine Leukocyte Esterase NEG Urine RBC 1 /hpf Urine WBC 1 /hpf Urine Bacteria RARE /hpf Urine Mucus FEW /lpf Microscopic Urinalysis Comment CULT NOT INDICATED MDM Medical Decision Making Medical Screen Exam Complete: Yes Emergency Medical Condition: Yes Medical Record Reviewed: Yes (past history confirm, recent visit reviewed, November CT normal) Interpretation(s) CBC & BMP Diagram 09/14/17 08:45 Total Protein 8.1, Albumin 4.3, Calcium Level 9.1, Alkaline Phosphatase 72, Aspartate Amino Transf (AST/SGOT) 17, Alanine Aminotransferase (ALT/SGPT) 27, Total Bilirubin 0.8 ct abdomen pelvis no acute Differential Diagnosis Gastroenteritis, appendicitis, colitis... Narrative Course Will check blood work, urinalysis, CT scan abdominal pelvis and dose with Zofran , IV fluids and Toradol and reevaluate ed workup no acute, no emesis here, tolerating liquids, resting on arrival for recheck when awake Patient denies any new complaints and states that they are feeling better. Patient happy with care, all questions answered. Patient knows that follow up is incumbent on them and to return to the emergency room immediately if new or worsening symptoms develop. Patient given strict return precautions, vitals reviewed and are normal, agrees to further workup as an outpatient. Diagnosis Primary Impression: Abdominal pain Qualified Codes: R10.84 - Generalized abdominal pain Additional Impression: Vomiting Qualified Codes: R11.2 - Nausea with vomiting, unspecified Patient Instructions: General Instructions Additional Instructions: fill your nausea prescription, return as needed, keep hydrated, keep a blood pressure log, set up a primary for close follow up Med/Other Pt SpecificInfo: No Change to Meds Disposition: 01 DISCHARGE HOME Condition: Stable Hortencia Bee MD Sep 14, 2017 08:44
[2017-09-14] MEDS ORDERED: SODIUM CHLOR 0.9% 1000 ML INJ 1,000 ML IV ONE (08:45)
[2017-09-14] MEDS ORDERED: KETOROLAC TROMETHAMINE 30 MG/ML (IVP) VIAL IV PUSH ONE (08:45)
[2017-09-14] MEDS ORDERED: ONDANSETRON HCL 4 MG/2 ML VIAL IV PUSH ONE (08:45)
[2017-09-14 08:59] LABS: AUTOMATED NEUTROPHIL # 5.2 TH/MM3 (1.8-7.7); BASOPHIL % 0.3 % (0.0-2.0); HEMATOCRIT 41.4 % (39.0-51.0); HEMO FLAGS DIFF FINAL; LYMPHOCYTE # 1.7 TH/MM3 (1.0-4.8); MEAN CELL VOLUME 84.1 FL (80.0-100.0); MEAN CORPUSCULAR HEMOGLOBIN 28.7 PG (27.0-34.0); MEAN CORPUSCULAR HGB CONC 34.2 % (32.0-36.0); MONO % 6.7 % (0.0-8.0); PLATELET COUNT 289 TH/MM3 (150-450); RED BLOOD COUNT 4.92 MIL/MM3 (4.50-5.90); RED CELL DISTRIBUTION WIDTH 14.6 % (11.6-17.2); WHITE BLOOD COUNT 7.5 TH/MM3 (4.0-11.0)
[2017-09-14 09:12] LABS: ANION GAP 5 MEQ/L (5-15); AST (GOT) 17 U/L (15-37); BICARBONATE 30.9 MEQ/L (21.0-32.0); BLOOD UREA NITROGEN 14 MG/DL (7-18); CHLORIDE 107 MEQ/L (98-107); GLOMERULAR FILTRATION RATE 84 ML/MIN (>89); POTASSIUM 3.8 MEQ/L (3.5-5.1); SODIUM (NA) 143 MEQ/L (136-145)
[2017-09-14 09:13] LABS: ALT (GPT) 27 U/L (12-78)
[2017-09-14 09:16] LABS: ALKALINE PHOSPHATASE 72 U/L (45-117); TOTAL BILIRUBIN ADULT 0.8 MG/DL (0.2-1.0)
[2017-09-14] MEDS ORDERED: IOHEXOL 350 MG/ML 10 ML VIAL (for RAD DIAG) IVCONTRAST ONE (09:25)
[2017-09-14 09:51] LABS: BACTERIA, URINE RARE /hpf; BLOOD, URINE TRACE (NEG); COMMENT (UR) CULT NOT INDICATED; CULTURE IF INDICATED CULT NOT INDICATED; GLUCOSE,URINE NEG (NEG); KETONE, URINE 10 mg/dL (NEG); MUCUS URINE FEW /lpf (OCC); NITRITE,URINE NEG (NEG); PH, URINE 6.5 (5.0-8.5); URINE COLOR YELLOW (YELLW/STRAW)
--- NOTE | 2017-09-14 10:01 | RADRPT ---
EXAM DATE/TIME: 09/14/2017 09:23 [facility] COMPARISON: CT ABDOMEN & PELVIS W CONTRAST, December 06, 2016, 9:38. INDICATIONS : Umbilical abdomen pain with nausea and vomiting today. IV CONTRAST: 71 cc Omnipaque 350 (iohexol) IV ORAL CONTRAST: No oral contrast ingested. RADIATION DOSE: 4.56 CTDIvol (mGy) MEDICAL HISTORY : Hypertension. Gastroesophageal reflux disease. SURGICAL HISTORY : Cholecystectomy. ENCOUNTER: Initial ACUITY: 1 day PAIN SCALE: 7/10 LOCATION: umbilical abdomen TECHNIQUE: Volumetric scanning of the abdomen and pelvis was performed. Using automated exposure control and ad justment of the mA and/or kV according to patient size, radiation dose was kept as low as reasonably achievable to obtain optimal diagnostic quality images. DICOM format image data is available electro nically for review and comparison. FINDINGS: LOWER LUNGS: The visualized lower lungs are clear. LIVER: Homogeneous density without lesion. There is no dilation of the biliary tree. Cholecystectomy. SPLEEN: Normal size without lesion. PANCREAS: Within normal limits. KIDNEYS: Normal in size and shape. There is no mass, stone or hydronephrosis. 1.6 cm cyst lower pole left ki dney, stable from prior. ADRENAL GLANDS: Within normal limits. VASCULAR: There is no aortic aneurysm. BOWEL/MESENTERY: No dilated loops of small or large bowel. No free fluid in the pelvis. ABDOMINAL WALL: Within normal limits. RETROPERITONEUM: There is no lymphadenopathy. BLADDER: No wall thickening or mass. REPRODUCTIVE: Within normal limits. INGUINAL: There is no lymphadenopathy or hernia. MUSCULOSKELETAL: Within normal limits for patient age. CONCLUSION: No acute findings. No dilated loops of small or large bowel. Christopher Moran MD on September 14, 2017 at 9:55 Board Certified Radiologist. This report was verified electronically.
[2017-09-14 11:14] VITALS: BP 176/93; PULSE 64; RESP 16; O2SAT 97
== END 2017-09-14 11:34 | disposition home or self-care (01) ==
LOC: NEPE 07:56
DX: R10.84 Generalized abdominal pain (principal); R11.2 Nausea with vomiting, unspecified
CPT/HCPCS: 74177; 80053; 81001; 83690; 85025; 96361; 96374; 96375; 99285; J1885; J2405; J7030; Q9967

== ENCOUNTER 2018-04-09 07:36 | Emergency (ER) | payer SELFPAY ==
[~2018-04-09] VITALS: Ht 177.8 cm; Wt 70.0 kg
[2018-04-09 07:40] VITALS: BP 146/98; PULSE 92; RESP 20; TEMP 98.9; O2SAT 100
[2018-04-09] MEDS ORDERED: SODIUM CHLOR 0.9% 1000 ML INJ 1,000 ML IV SCH (08:04)
[2018-04-09] MEDS ORDERED: SODIUM CHLORIDE 0.9% FLUSH 10 ML FLUSH IV FLUSH PRN (08:15)
[2018-04-09] MEDS ORDERED: DICYCLOMINE HCL 20 MG/2 ML VIAL IM ONE (08:15)
[2018-04-09] MEDS ORDERED: diphenhydrAMINE HCL 50 MG/ML VIAL IV PUSH ONE (08:15)
[2018-04-09] MEDS ORDERED: PROCHLORPERAZINE INJ 10 MG/2 ML VIAL IV PUSH ONE (08:15)
--- NOTE | 2018-04-09 08:18 | PD ---
HPI . Abdominal pain Chief Complaint: GI Complaint Time Seen by Provider: 07:50 Travel History International Travel<30 days: No Contact w/Intl Traveler<30days: No Traveled to known affect area: No History of Present Illness HPI Patient presents with a chief complaint of abdominal pain. Onset was 2 days ago. The location of the pain is mid upper abdomen. Pain is rated 9/10. It is associated with occasional nausea and vomiting. He states that his symptoms are exacerbated by eating. He states that eating makes him vomit. He denies any urinary tract symptoms and states that he has continued to make a normal amount of urine. The patient reports many previous similar episodes. He states that he will come here and be given some IV fluids and medications and will then be fine for many months. He believes that his symptoms are secondary to the fact that he has had a previous cholecystectomy. PFSH Past Medical History Arthritis: No Autoimmune Disease: No Blood Disorders: No Cancer: No Cardiac Catheterization: No Cardiovascular Problems: Yes High Cholesterol: No Congestive Heart Failure: No Diabetes: No Diminished Hearing: No Endocrine: No Gastrointestinal Disorders: Yes GERD: Yes Genitourinary: No Headaches: No Hypertension: Yes Immune Disorder: No Implanted Vascular Access Dvce: No Musculoskeletal: No Neurologic: No Psychiatric: No Reproductive: No Respiratory: No PNEUMOCCOCAL Vaccine (Year): 3 Past Surgical History Abdominal Surgery: Yes Cardiac Surgery: No Cholecystectomy: Yes Ear Surgery: No Endocrine Surgery: No Eye Surgery: No Genitourinary Surgery: Yes Gynecologic Surgery: No Neurologic Surgery: No Oral Surgery: No Thoracic Surgery: No Social History Alcohol Use: No Tobacco Use: Yes (<1/2 ppd) Substance Use: Yes (marijuana occ) Allergies-Medications (Allergen,Severity, Reaction): Coded Allergies: No Known Allergies (Verified Adverse Reaction, Unknown, 04/09/18) Reported Meds & Prescriptions Reported Meds & Active Scripts Active Protonix (Pantoprazole Sodium) 40 Mg Tab 40 Mg PO DAILY Reglan (Metoclopramide HCl) 10 Mg Tab 10 Mg PO TIDAC Review of Systems Except as stated in HPI: all other systems reviewed are Neg General / Constitutional: Positive: Weight Loss, No: Fever, Chills Cardiovascular: No: Chest Pain or Discomfort Respiratory: No: Shortness of Breath Gastrointestinal: Positive: Nausea, Vomiting, Abdominal Pain, No: Diarrhea Genitourinary: No: Urgency, Frequency, Dysuria, Decreased Urinary Output Physical Exam Narrative GENERAL: This is a thin, cachectic appearing man. SKIN: warm/dry. HEAD: Normocephalic. Atraumatic. EYES: Pupils equal and round. Extraocular movements are intact. ENT: Mucous membranes pink and moist. NECK: Supple. Full range of motion without pain.. CARDIOVASCULAR: Regular rate and rhythm. Heart sounds are normal but hyperdynamic. RESPIRATORY: No accessory muscle use. Clear to auscultation. Breath sounds equal bilaterally. GASTROINTESTINAL: Abdomen soft. Diffuse, mid abdominal tenderness. Bowel sounds present. Nondistended. MUSCULOSKELETAL: No obvious deformities. Normal muscle tone. NEUROLOGICAL: Awake and alert. No obvious cranial nerve deficits. Motor grossly within normal limits. Normal speech. PSYCHIATRIC: Appropriate mood and affect; insight and judgment normal. Data Data Last Documented VS Vital Signs Date Time Temp Pulse Resp B/P (MAP) Pulse Ox O2 Delivery O2 Flow Rate FiO2 04/09/18 07:51 18 04/09/18 07:40 98.9 92 146/98 (114) 100 Orders Orders Complete Blood Count With Diff (04/09/18 08:04) Comprehensive Metabolic Panel (04/09/18 08:04) Lipase (04/09/18 08:04) Urinalysis - C+S If Indicated (04/09/18 08:04) Iv Access Insert/Monitor (04/09/18 08:04) Sodium Chlor 0.9% 1000 Ml Inj (Ns 1000 M (04/09/18 08:04) Sodium Chloride 0.9% Flush (Ns Flush) (04/09/18 08:15) Diphenhydramine Inj (Benadryl Inj) (04/09/18 08:15) Prochlorperazine Inj (Compazine Inj) (04/09/18 08:15) Dicyclomine Inj (Bentyl Inj) (04/09/18 08:15) Cath For Specimen (04/09/18 10:31) Sodium Chlor 0.9% 1000 Ml Inj (Ns 1000 M (04/09/18 10:45) Clindamycin 900 Mg/Ns Premix (Cleocin 90 (04/09/18 11:00) Ceftriaxone 2 Gm Premix Inj (Rocephin 2 (04/09/18 12:00) Labs Laboratory Tests Test 04/09/18 08:17 04/09/18 11:25 White Blood Count 8.1 TH/MM3 Red Blood Count 5.03 MIL/MM3 Hemoglobin 14.1 GM/DL Hematocrit 42.8 % Mean Corpuscular Volume 85.1 FL Mean Corpuscular Hemoglobin 28.1 PG Mean Corpuscular Hemoglobin Concent 33.0 % Red Cell Distribution Width 14.5 % Platelet Count 323 TH/MM3 Mean Platelet Volume 7.9 FL Neutrophils (%) (Auto) 66.2 % Lymphocytes (%) (Auto) 27.9 % Monocytes (%) (Auto) 5.0 % Eosinophils (%) (Auto) 0.3 % Basophils (%) (Auto) 0.6 % Neutrophils # (Auto) 5.4 TH/MM3 Lymphocytes # (Auto) 2.3 TH/MM3 Monocytes # (Auto) 0.4 TH/MM3 Eosinophils # (Auto) 0.0 TH/MM3 Basophils # (Auto) 0.0 TH/MM3 CBC Comment DIFF FINAL Differential Comment Blood Urea Nitrogen 10 MG/DL Creatinine 1.31 MG/DL Random Glucose 147 MG/DL Total Protein 7.8 GM/DL Albumin 4.1 GM/DL Calcium Level 8.8 MG/DL Alkaline Phosphatase 75 U/L Aspartate Amino Transf (AST/SGOT) 17 U/L Alanine Aminotransferase (ALT/SGPT) 30 U/L Total Bilirubin 0.7 MG/DL Sodium Level 142 MEQ/L Potassium Level 3.7 MEQ/L Chloride Level 106 MEQ/L Carbon Dioxide Level 25.8 MEQ/L Anion Gap 10 MEQ/L Estimat Glomerular Filtration Rate 71 ML/MIN Lipase 100 U/L Urine Color YELLOW Urine Turbidity CLEAR Urine pH 6.0 Urine Specific [place] 1.010 Urine Protein 100 mg/dL Urine Glucose (UA) NEG mg/dL Urine Ketones TRACE mg/dL Urine Occult Blood SMALL Urine Nitrite NEG Urine Bilirubin NEG Urine Urobilinogen LESS THAN 2 mg/dL Urine Leukocyte Esterase NEG Urine RBC LESS THAN 1 /hpf Urine WBC 1 /hpf Urine Hyaline Casts 3 /lpf Urine Mucus FEW /lpf Microscopic Urinalysis Comment CULT NOT INDICATED MDM Medical Decision Making Medical Screen Exam Complete: Yes Emergency Medical Condition: Yes Medical Record Reviewed: Yes (The patient is seen here episodically for abdominal pain. Previous workups have been benign. He is usually treated with IV fluids and IV antibiotic. He is sometimes given a proton pump inhibitor.) Differential Diagnosis Differential diagnosis of abdominal pain includes but is not limited to gastritis, pancreatitis, hepatitis, gastroenteritis, constipation, urinary retention, peptic ulcer disease, diverticulitis or appendicitis Narrative Course Patient presents complaining with abdominal pain associated with some nausea. He looks chronically ill with cachexia. I have ordered baseline labs. An IV will be started and he will be given IV fluids. He will be given IV Compazine and Benadryl. CBC & BMP Diagram 04/09/18 08:17 Total Protein 7.8, Albumin 4.1, Calcium Level 8.8, Alkaline Phosphatase 75, Aspartate Amino Transf (AST/SGOT) 17, Alanine Aminotransferase (ALT/SGPT) 30, Total Bilirubin 0.7 UA is negative for infection I will discharge him with a prescription for Prilosec and Zofran Diagnosis Primary Impression: Abdominal pain Qualified Codes: R10.84 - Generalized abdominal pain Additional Impression: Vomiting Qualified Codes: R11.2 - Nausea with vomiting, unspecified Patient Instructions: Abdominal Pain (ED), Acute Nausea and Vomiting (DC), General Instructions Scripts Ondansetron (Zofran) 4 Mg Tab 4 MG PO Q6HR Y for NAUSEA OR VOMITING, #10 TAB 0 Refills Prov: Shelly Grady MD 04/09/18 Omeprazole Magnesium (Prilosec) 20 Mg Tab 1 TAB PO DAILY, #30 Prov: Shelly Grady MD 04/09/18 Disposition: 01 DISCHARGE HOME Condition: Stable Shelly Grady MD Apr 09, 2018 08:18
[2018-04-09 08:28] LABS: AUTOMATED NEUTROPHIL # 5.4 TH/MM3 (1.8-7.7); BASOPHIL % 0.6 % (0.0-2.0); EOSINOPHIL % 0.3 % (0.0-4.0); HEMATOCRIT 42.8 % (39.0-51.0); HEMOGLOBIN 14.1 GM/DL (13.0-17.0); LYMPH % 27.9 % (9.0-44.0); LYMPHOCYTE # 2.3 TH/MM3 (1.0-4.8); MEAN CELL VOLUME 85.1 FL (80.0-100.0); MEAN CORPUSCULAR HEMOGLOBIN 28.1 PG (27.0-34.0); MEAN PLATELET VOLUME 7.9 FL (7.0-11.0); MONOCYTE # 0.4 TH/MM3 (0-0.9); NEUT % 66.2 % (16.0-70.0); PLATELET COUNT 323 TH/MM3 (150-450); RED BLOOD COUNT 5.03 MIL/MM3 (4.50-5.90); RED CELL DISTRIBUTION WIDTH 14.5 % (11.6-17.2); WHITE BLOOD COUNT 8.1 TH/MM3 (4.0-11.0)
[2018-04-09 08:49] LABS: ALBUMIN 4.1 GM/DL (3.4-5.0); AST (GOT) 17 U/L (15-37); BICARBONATE 25.8 MEQ/L (21.0-32.0); BLOOD UREA NITROGEN 10 MG/DL (7-18); CALCIUM 8.8 MG/DL (8.5-10.1); CHLORIDE 106 MEQ/L (98-107); CREATININE 1.31 MG/DL (0.60-1.30); GLOMERULAR FILTRATION RATE 71 ML/MIN (>89); GLUCOSE,RANDOM 147 MG/DL (74-106); SODIUM (NA) 142 MEQ/L (136-145)
[2018-04-09 08:51] LABS: ALT (GPT) 30 U/L (12-78)
[2018-04-09 08:52] LABS: ALKALINE PHOSPHATASE 75 U/L (45-117); TOTAL BILIRUBIN ADULT 0.7 MG/DL (0.2-1.0); TOTAL PROTEIN 7.8 GM/DL (6.4-8.2)
[2018-04-09] MEDS ORDERED: SODIUM CHLOR 0.9% 1000 ML INJ 1,000 ML IV ONE (10:45)
[2018-04-09] MEDS ORDERED: CLINDAMYCIN 900 MG/NS PREMIX 50 ML IV SCH (11:00)
[2018-04-09 11:45] LABS: BILIRUBIN, URINE NEG (NEG); BLOOD, URINE SMALL (NEG); GLUCOSE,URINE NEG (NEG); HYALINE CAST, URINE 3 /lpf (RARE); KETONE, URINE TRACE mg/dL (NEG); MUCUS URINE FEW /lpf (OCC); NITRITE,URINE NEG (NEG); URINE COLOR YELLOW (YELLW/STRAW); URINE LEUKOCYTE ESTERASE NEG (NEG)
[2018-04-09] MEDS ORDERED: PRIL20TA2 PO (11:55)
[2018-04-09] MEDS ORDERED: ZOFR4TAB PO (11:55)
[2018-04-09] MEDS ORDERED: cefTRIAXone 2 GM PREMIX INJ 50 ML IV SCH (12:00)
== END 2018-04-09 12:52 | disposition home or self-care (01) ==
LOC: NEPE 07:36
DX: R10.84 Generalized abdominal pain (principal); R11.2 Nausea with vomiting, unspecified; K21.9 Gastro-esophageal reflux disease without esophagitis; I10 Essential (primary) hypertension; F17.200 Nicotine dependence, unspecified, uncomplicated; F12.90 Cannabis use, unspecified, uncomplicated; Z79.899 Other long term (current) drug therapy
CPT/HCPCS: 80053; 81001; 83690; 85025; 96361; 96365; 96372; 96375; 99284; J0500; J0696; J0780; J1200; J7030